=== PATIENT | female | born 1975 | race Caucasian/White ===

== ENCOUNTER 2022-09-11 09:39 | Day surgery (SDC) | payer OTHER ==
[2022-09-09 14:01] LABS: COVID AG,FIA SOURCE NASOPHARYNGEAL
[~2022-09-11] VITALS: Ht 157.5 cm; Wt 87.2 kg
[~2022-09-11 09:39] MED LIST: SODIUM CHLORIDE 0.9% 1,000 ML ONE
[2022-09-11] MEDS ORDERED: LIDOCAINE/PF 2% 5 ML VIAL CAUDAL ONE (09:40)
[2022-09-11] MEDS ORDERED: PROPOFOL 1% 20 ML VIAL IVP ONE (09:40)
[2022-09-11] MEDS ORDERED: LISI5TAB21 PO (09:52)
[2022-09-11] MEDS ORDERED: CHOL10002 PO (09:52)
[2022-09-11] MEDS ORDERED: ESCI10 PO (09:52)
[2022-09-11] MEDS ORDERED: TRAM-559 PO (09:52)
[2022-09-11] MEDS ORDERED: TOPI50TA24 PO (09:52)
[2022-09-11] MEDS ORDERED: [UNRECOGNIZED DRUG - CODE] TP (09:52)
[2022-09-11] MEDS ORDERED: DOXY50CA73 PO (09:52)
[2022-09-11] MEDS ORDERED: CETI10TA58 PO (09:52)
[2022-09-11] MEDS ORDERED: SODIUM CHLORIDE 0.9% 1,000 ML IV ONE (11:00)
== END 2022-09-11 14:30 | disposition home or self-care (01) ==
LOC: SURGERY 09:39
PROVIDERS: ATTEND Internal Medicine Gastroenterology
DX: R13.10 Dysphagia, unspecified (principal); Z20.822 Contact with and (suspected) exposure to COVID-19; E66.3 Overweight; I10 Essential (primary) hypertension; K21.9 Gastro-esophageal reflux disease without esophagitis; Z79.899 Other long term (current) drug therapy; Z91.018 Allergy to other foods; Z91.013 Allergy to seafood; Z90.710 Acquired absence of both cervix and uterus; Z98.890 Other specified postprocedural states
CPT/HCPCS: 87426; 43239; 88305; C9803; C1769; J2704; J3490; J7030